=== PATIENT | male | born 1945 | race Caucasian/White ===

== ENCOUNTER 2022-01-02 11:39 | Emergency (ER) | payer MEDICARE, OTHER ==
[2021-10-04 11:35] VITALS: BP 177/89
[~2022-01-02] VITALS: Ht 177.8 cm; Wt 95.0 kg
[~2022-01-02 11:39] MED LIST: APIX5TAB PO; ATOR20TA58 PO; CARB1TAB43 PO; CLON2TAB9 PO; CYAN-9 PO; DIVA250T PO; DIVA500T4 PO; FAMO40TA4 PO; FLUO10CA13 PO; HYDR-2868 PO; INSU100I13 SQ; INSU100V6 SQ; METO25TA4 PO; OXYC1TAB15 PO; RIVA1PAT22 TP; TRAZ-118 PO
[2022-01-02] MEDS ORDERED: MORPHINE SULFATE 4 MG/ML INJ. ONE (11:47)
[2022-01-02] MEDS ORDERED: ONDANSETRON PF 4 MG/2 ML VIAL. ONE (11:47)
--- NOTE | 2022-01-02 11:50 | PHYS DOC ---
Past Medical History Additional Past Medical Histor: parkinsons, COGNITIVE IMPAIRMENT Past Surgical History: No Surgical History Smoking Status: Never Smoker Alcohol Use: None General Adult EDM: Chief Complaint: DYSPNEA/RESPIRATORY DISTRESS HPI: HPI: Patient is a 76 year old male brought in by EMS from his detention facility for coffee-ground emesis and respiratory distress. Symptoms reportedly began this morning. I am unable to procure any other meaningful information from the patient directly because he is an extremis. He has dried vomitus on his face and in his mouth. He has gurgling respirations and manifested significant respiratory distress. He was found to be hypoxic in the low 80s on room air, he was placed on nasal cannula oxygen, he was placed on nonrebreather subsequently. He is hypoxic in the 80s on arrival as well. He appears to have very poor perfusion. Paperwork accompanying the patient does indicate DNR status. The patient was lucid enough shortly after arrival to report to me that he does not want to be intubated or placed on life support. He does report that he has "pain" and points to his right abdomen. His abdomen is markedly distended. He apparently was given oral Zofran at a detention facility prior to arrival. EMS did not give him any medications, they did establish an IV in route. The patient has history of atrial fibrillation and is anticoagulated with Eliquis. Review of Systems: Review of Systems: Review of systems is limited secondary to critical clinical presentation, limited as per HPI Heart Score: C/O Chest Pain: N/A Risk Factors: Risk Factors: DM, Current or recent (<one month) smoker, HTN, HLP, family history of CAD, obesity. Risk Scores: Score 0 - 3: 2.5% MACE over next 6 weeks - Discharge Home Score 4 - 6: 20.3% MACE over next 6 weeks - Admit for Clinical Observation Score 7 - 10: 72.7% MACE over next 6 weeks - Early Invasive Strategies Current Medications: Current Medications Medications (Trade) Dose Ordered Sig/Patsy Start Time Stop Time Status Last Admin Dose Admin Morphine Sulfate (Morphine Sulfate) 4 mg STK-MED ONCE 01/02/22 11:47 01/02/22 11:47 DC Ondansetron HCl (Zofran) 4 mg STK-MED ONCE 01/02/22 11:47 01/02/22 11:47 DC Allergies: Allergies: Allergies Coded Allergies Type Severity Reaction Last Updated Verified Iodinated Contrast Media Allergy Severe 09/30/21 Yes Sulfa (Sulfonamide Antibiotics) Allergy Intermediate 09/30/21 Yes aripiprazole Allergy Intermediate 09/30/21 Yes gabapentin Allergy Intermediate 09/30/21 Yes hydrochlorothiazide Allergy Intermediate 09/30/21 Yes lamotrigine Allergy Intermediate 09/30/21 Yes metformin Allergy Intermediate 09/30/21 Yes saxagliptin Allergy Intermediate 09/30/21 Yes Physical Exam: PE: Constitutional: Acutely ill-appearing, manifest significant respiratory distress and impending respiratory failure, moribund HENT: Normocephalic, atraumatic, mucous membranes are dry, coffee-ground emesis/dark blood in oropharynx, dried on mouth and face and teeth Eyes: Conjunctival pallor noted. No scleral icterus. Neck: Trachea is midline. Cardiovascular: Poor perfusion, mottled extremities, cool pale extremities, palpable and irregularly irregular pulse palpated in bilateral femoral arteries, tachycardia. Heart tones very distant difficult to auscultate secondary to respiratory distress and abnormal breath sounds Lungs & Thorax: Marked respiratory distress, impending respiratory failure. Significant tachypnea. Equal chest rise. Intercostal and clavicular retractions noted. He is a limited speaking in very brief sentences initially. No wheezing. Inspiratory stridor is noted. Gurgling respirations. Abdomen: Bowel sounds normal, soft, no tenderness, no masses, no pulsatile masses. [] Skin: Cool, pale Extremities: No acute limb deformity. Skin on extremities is mottled, cool, pale Neurologic: He is initially awake and alert, unable to assess orientation, speaks in only brief sentences, no facial asymmetry, unable to follow specific commands. He is in significant respiratory distress, moribund in appearance. Shortly after arrival and after being given morphine for pain and air hunger, he becomes unresponsive without purposeful movement. Psychologic: Initially his affect is anxious, shortly after arrival and after being given morphine, he became unresponsive EKG: EKG: [] Radiology/Procedures: Radiology/Procedures: [] Course & Med Decision Making: Course & Med Decision Making I suctioned the patient's oropharynx and oral secretions. He is placed on oxygen, he is given IV Zofran and IV morphine for nausea and air hunger. Shortly after being given medication, his respirations slowed, his tachycardia began to improve, he eventually became bradycardic, and then asystolic. Spontaneous respirations ceased, no cardiac activity is auscultated, no pulses palpated. Pupils became fixed and dilated. Time of was called at 12:04 PM. Asystole was confirmed on bedside cardiac ultrasound. The patient's arrived after his , I explained all the findings to her. I explained what we had done for him here. She came with the name of the home in [facility], security and nursing staff contacted them. The patient's primary care physician is Dr. Johnson I spoke with Dr. Rich Brown on his behalf, and Dr. Johnson will be notified and will sign certificate. He is not a candidate for transplant. Cale Disclaimer: Cale Disclaimer: This electronic medical record was generated, in whole or in part, using a voice recognition dictation system. Departure Departure Impression: Primary Impression: GI bleed Qualified Codes: K92.2 - Gastrointestinal hemorrhage, unspecified Additional Impressions: Respiratory failure Qualified Codes: J96.01 - Acute respiratory failure with hypoxia Asystole Disposition: 20 Condition: Referrals: UNKNOWN PCP NAME (PCP) SADIE DE PAZ DO Jan 02, 2022 11:50
[2022-01-02] MEDS ORDERED: IV NORMAL SALINE 1000ML BAG 1,000 ML IV ONE (12:00)
[2022-01-02] MEDS ORDERED: ONDANSETRON PF 4 MG/2 ML VIAL. IVP ONE (12:00)
[2022-01-02] MEDS ORDERED: MORPHINE SULFATE 4 MG/ML INJ. IVP ONE (12:00)
== END 2022-01-02 12:04 ==
LOC: ER 11:39
DX: K92.2 Gastrointestinal hemorrhage, unspecified (principal); J96.01 Acute respiratory failure with hypoxia; I46.9 Cardiac arrest, cause unspecified; I48.91 Unspecified atrial fibrillation; Z91.041 Radiographic dye allergy status; Z88.8 Allergy status to other drugs, medicaments and biological substances; Z88.2 Allergy status to sulfonamides
CPT/HCPCS: 96374; 99285; J2270; J7030